=== PATIENT | male | born 2000 | race Two or more races ===

== ENCOUNTER 2022-08-12 21:05 | Emergency (ER) | payer MEDICAID ==
[~2022-08-12] VITALS: Ht 185.4 cm; Wt 72.7 kg
[2022-08-12 22:02] VITALS: BP 142/85
== END 2022-08-13 02:31 | disposition left against medical advice (07) ==
LOC: ER 21:07
DX: J02.9 Acute pharyngitis, unspecified (principal); Z53.21 Procedure and treatment not carried out due to patient leaving prior to being seen by health care provider